=== PATIENT | female | born 1965 | race African-American/Black ===

== ENCOUNTER 2021-08-07 04:13 | Day surgery (SDC) | payer OTHER ==
[2021-08-02 17:12] VITALS: BMI 38.2
[2021-08-07 06:45] VITALS: TEMP 96.8
[2021-08-07] MEDS ORDERED: BUPIVACAINE HCL/PF 0.5% (5MG/ML) 10 ML VIAL ONE (07:24)
[2021-08-07] MEDS ORDERED: LIDOCAINE HCL 2% (20ML MULTI-DOSE VIAL) ONE (07:24)
[2021-08-07] MEDS ORDERED: DEXAMETHASONE SOD PHOSPHATE 4 MG/1 ML VIAL ONE ×2 (07:24→08:16)
[2021-08-07] MEDS ORDERED: SUCCINYLCHOLINE CHLORIDE 200 MG/10 ML SYRINGE ONE (07:40)
[2021-08-07] MEDS ORDERED: MIDAZOLAM HCL 2 MG/2 ML SINGLE DOSE VIAL ONE (07:40)
[2021-08-07] MEDS ORDERED: PROPOFOL 20 ML ONE ×4 (07:40→07:58)
[2021-08-07] MEDS ORDERED: ceFAZolin SODIUM 1 GM VIAL IVPB ONE (07:50)
[2021-08-07] MEDS ORDERED: LIDOCAINE HCL 2% (50ML VIAL) NR ONE (07:50)
[2021-08-07] MEDS ORDERED: BUPIVACAINE HCL/PF 0.5% (5 MG/ML) 30 ML VIAL IJ ONE (07:50)
[2021-08-07] MEDS ORDERED: DEXAMETHASONE SOD PHOSPHATE 4 MG/1 ML VIAL IVPUSH ONE (08:46)
[2021-08-07] MEDS ORDERED: LIDOCAINE HCL/PF 2% SDV 5ML VIAL ONE (09:00)
[2021-08-07 10:32] VITALS: BP 121/62; PULSE 63
== END 2021-08-07 11:26 | disposition home or self-care (01) ==
LOC: JASU-SURG 04:13
PROVIDERS: ATTEND Podiatrist
PROC: 0SRM0JZ Replacement of Right Metatarsal-Phalangeal Joint with Synthetic Substitute, Open Approach (ICD-10-PCS; 2021-08-07)
PROC: 0QSQ04Z Reposition Right Toe Phalanx with Internal Fixation Device, Open Approach (ICD-10-PCS; 2021-08-07)
PROC: 0QSQ04Z Reposition Right Toe Phalanx with Internal Fixation Device, Open Approach (ICD-10-PCS; principal; 2021-08-07 07:30)
DX: M20.11 Hallux valgus (acquired), right foot (principal)
CPT/HCPCS: 28298; C1713; 73630-TC-RT-FY; 82962; 88304-TC; 88311-TC